=== PATIENT | female | born 1955 | race Caucasian/White ===

== ENCOUNTER 2024-04-28 07:18 | Day surgery (SDC) | payer MEDICARE, OTHER ==
[~2024-04-28 07:18] MED LIST: Sodium Chloride 0.9% 10 ML Syringe FLUSH PRN
[2024-04-28] MEDS ORDERED: Propofol 200 MG/20 ML SDV IV ONE (07:19)
[2024-04-28] MEDS ORDERED: Phenylephrine 0.5% Nasal Spray 15 ML Bot NAS ONE (07:19)
[2024-04-28] MEDS ORDERED: Lidocaine 2% 100 MG/5 ML Syringe IVPUSH ONE (07:19)
[2024-04-28] MEDS: Lactated Ringers 1,000 ML IV SCH (08:11)
== END 2024-04-28 10:48 | disposition home or self-care (01) ==
LOC: FB.SDS 07:18
PROVIDERS: ATTEND Surgery
DX: Z12.11 Encounter for screening for malignant neoplasm of colon (principal); D12.0 Benign neoplasm of cecum; K57.30 Diverticulosis of large intestine without perforation or abscess without bleeding; I10 Essential (primary) hypertension; E78.5 Hyperlipidemia, unspecified; F41.9 Anxiety disorder, unspecified; F32.A Depression, unspecified; F17.210 Nicotine dependence, cigarettes, uncomplicated; Z79.82 Long term (current) use of aspirin; Z79.899 Other long term (current) drug therapy
CPT/HCPCS: 00811; 45385; 88305; A9270; J2704; J7120